=== PATIENT | male | born 1985 | race Two or more races ===

== ENCOUNTER 2022-02-23 18:33 | Emergency (ER) | payer OTHER ==
[~2022-02-23] VITALS: Ht 182.9 cm; Wt 103.0 kg
[2022-02-23] MEDS ORDERED: ADDE30CA3 PO (18:46)
[2022-02-23] MEDS ORDERED: IBUP80TA PO (22:46)
[2022-02-23] MEDS ORDERED: IBUPROFEN 800 MG TAB PO ONE (22:50)
[2022-02-23 23:31] VITALS: BP 148/88
== END 2022-02-23 23:35 | disposition home or self-care (01) ==
LOC: M ED 18:33
DX: S20.212A Contusion of left front wall of thorax, initial encounter (principal); Y92.9 Unspecified place or not applicable; Y93.69 Activity, other involving other sports and athletics played as a team or group; Y99.1 Military activity; Z79.899 Other long term (current) drug therapy

== ENCOUNTER 2022-06-08 09:11 | Emergency (ER) | payer OTHER ==
[~2022-06-08] VITALS: Ht 182.9 cm; Wt 97.7 kg
[~2022-06-08 09:11] MED LIST: ADDE30CA3 PO; IBUP80TA PO
[2022-06-08] MEDS ORDERED: ACETAMINOPHEN 500 MG TAB PO ONE (13:00)
[2022-06-08] MEDS ORDERED: LIDOCAINE 4% CREAM 5GM (LMX4) As Ordered ONE (13:23)
[2022-06-08] MEDS ORDERED: LIDOCAINE 4% TOPICAL SOLN 50 ML BTL TOP ONE (13:25)
[2022-06-08] MEDS ORDERED: LIDOCAINE 4% CREAM 5GM (LMX4) TOP ONE (13:25)
[2022-06-08] MEDS ORDERED: DERMABOND TOPICAL SKIN ADHESIVE TOP ONE (13:45)
[2022-06-08 14:21] VITALS: BP 140/73
== END 2022-06-08 14:22 | disposition home or self-care (01) ==
LOC: M ED 09:11 → EDBD 09:11 → M ED 14:22
DX: S61.012A Laceration without foreign body of left thumb without damage to nail, initial encounter (principal); W26.9XXA Contact with unspecified sharp object(s), initial encounter; I10 Essential (primary) hypertension; Z79.1 Long term (current) use of non-steroidal anti-inflammatories (NSAID); Z79.899 Other long term (current) drug therapy; Y92.009 Unspecified place in unspecified non-institutional (private) residence as the place of occurrence of the external cause; Y93.G3 Activity, cooking and baking